=== PATIENT | female | born 1955 | race Caucasian/White ===

== ENCOUNTER 2016-12-25 20:13 | Emergency (ER) | payer OTHER, BC ==
[~2016-12-25] VITALS: Ht 172.7 cm; Wt 104.3 kg
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
== END 2016-12-25 23:24 | disposition home or self-care (01) ==
LOC: CED 20:13
DX: S52.502A Unspecified fracture of the lower end of left radius, initial encounter for closed fracture (principal); S52.612A Displaced fracture of left ulna styloid process, initial encounter for closed fracture; S62.337A Displaced fracture of neck of fifth metacarpal bone, left hand, initial encounter for closed fracture; S20.212A Contusion of left front wall of thorax, initial encounter; V49.00XA Driver injured in collision with unspecified motor vehicles in nontraffic accident, initial encounter; Y92.410 Unspecified street and highway as the place of occurrence of the external cause; E78.5 Hyperlipidemia, unspecified; I10 Essential (primary) hypertension
CPT/HCPCS: 29125; 71020; 73110; 99283